=== PATIENT | male | born 1955 | race Caucasian/White ===

== ENCOUNTER 2020-07-31 16:52 | Emergency (ER) | payer MEDICARE ==
--- NOTE | 2020-07-31 16:55 | ERPHSYRPT ---
- History of Present Illness Time Seen by Provider: 07/31/20 16:55 Source: patient, family Exam Limitations: no limitations Physician History: Patient is a 65-year-old white male who has a history of hypertension and woke up today and was not feeling well. Patient was out in the heat today working hard in the yard and not drinking well. When he stood up he felt dizzy and fell. Prior to arrival, the patient felt dizzy and lightheaded and then fell injuring his face and head as well as his right hand. He had a syncopal episode. He denies chest pain he denies shortness of breath. He has no abdominal pain. He has never had anything like this before in the past. Timing/Duration: today Severity: moderate Associated Symptoms: syncope, No vomiting, No shortness of breath, No chest pain Allergies/Adverse Reactions: No Known Drug Allergies Allergy (Verified 07/31/20 17:15) Home Medications: lisinopriL [Lisinopril] 20 mg PO DAILY 07/31/20 [History] Hx Influenza Vaccination/Date Given: No Hx Pneumococcal Vaccination/Date Given: No Travel Risk - International Travel Have you traveled outside of the country in past 3 weeks: No - Coronavirus Screening Are you exhibiting any of the following symptoms?: No Close contact with a COVID-19 positive Pt in past 14-21 Days: No - Review of Systems Constitutional: Weakness Eyes: No Symptoms Ears, Nose, & Throat: No Symptoms Respiratory: No Symptoms Cardiac: No Symptoms, Syncope Abdominal/Gastrointestinal: No Symptoms Genitourinary Symptoms: No Symptoms Musculoskeletal: No Symptoms Skin: No Symptoms Neurological: Dizziness Psychological: No Symptoms Endocrine: No Symptoms Hematologic/Lymphatic: No Symptoms Immunological/Allergic: No Symptoms All Other Systems: Reviewed and Negative - Past Medical History Pertinent Past Medical History: Yes Neurological History: No Pertinent History ENT History: No Pertinent History Cardiac History: Hypertension Respiratory History: No Pertinent History Endocrine Medical History: No Pertinent History Musculoskeletal History: Osteoarthritis GI Medical History: No Pertinent History History: No Pertinent History Psycho-Social History: No Pertinent History Male Reproductive Disorders: No Pertinent History Other Medical History: HX SHOULDER PN D/T OA; KNEE OA - Past Surgical History Past Surgical History: Yes Neuro Surgical History: No Pertinent History Cardiac: No Pertinent History Respiratory: No Pertinent History Gastrointestinal: No Pertinent History Genitourinary: No Pertinent History Musculoskeletal: No Pertinent History Male Surgical History: No Pertinent History Other Surgical History: SKIN GRAFT IN 1992/[facility]. - Social History Smoking Status: Never smoker Exposure to second hand smoke: No Drug Use: none - Nursing Vital Signs Nursing Vital Signs: Initial Vital Signs Pulse Rate 88 07/31/20 17:04 Respiratory Rate 18 07/31/20 17:04 Blood Pressure 104/62 07/31/20 17:04 O2 Sat by Pulse Oximetry 94 L 07/31/20 17:04 Pain Scale Pain Intensity 0 - Physical Exam General Appearance: no apparent distress, alert, anxiety Eye Exam: PERRL/EOMI, other Ears, Nose, Throat Exam: normal ENT inspection (Laceration left lateral eyebrow), moist mucous membranes Neck Exam: normal inspection, non-tender, supple, full range of motion Respiratory Exam: normal breath sounds, lungs clear, airway intact, No chest tenderness, No respiratory distress Cardiovascular Exam: regular rate/rhythm, normal heart sounds, normal peripheral pulses Gastrointestinal/Abdomen Exam: soft, normal bowel sounds, No tenderness Rectal Exam: not done Back Exam: normal inspection, normal range of motion, No CVA tenderness, No vertebral tenderness Extremity Exam: normal inspection, normal range of motion, pelvis stable Neurologic Exam: alert, oriented x 3, cooperative, registration clerk II-XII nml as tested, normal mood/affect, nml cerebellar function, nml station & gait, sensation nml Skin Exam: laceration (Approximately 2 cm laceration lateral aspect of left eyebrow) Lymphatic Exam: No adenopathy SpO2 Interpretation: normal O2 Delivery: Room Air Procedures - Laceration/Wound Repair Left Lateral Eye Time of Procedure: 20:00 Wound Location: Left, face (I) Wound Length (cm): 4 Wound's Depth, Shape: superficial Wound Explored: clean (No foreign body in bloodless field to base) Hibiclens Prep: No Anesthesia: 1% Lidocaine Volume Anesthetic (ccs): 3 Wound Repaired With: sutures Suture Size/Type: 4-0, prolene Number of Sutures: 5 - Course Nursing assessment & vital signs reviewed: Yes EKG Interpreted by Me: RATE ([id number]), Sinus Rhythm, NORMAL AXIS, NORMAL INTERVALS, NORMAL QRS, NORMAL ST-T, Other (No acute ischemic changes on today's EKG. Comparison EKG was performed on 03/02/2013. No changes from then.) Ordered Tests: Active Orders 24 hr Category Date Time Status Precision Mechanical Instrument Maker STAT Care 07/31/20 17:30 Active EKG-ER Only STAT Care 07/31/20 17:29 Active IV Insertion STAT Care 07/31/20 17:29 Active HAND (MINIMUM 3 VIEWS) Stat Exams 07/31/20 17:31 Taken HEAD WITHOUT CONTRAST [CT] Stat Exams 07/31/20 17:30 Taken CBC W DIFF Stat Lab 07/31/20 17:10 Completed CMP Stat Lab 07/31/20 17:10 Completed Lactic Acid Stat Lab 07/31/20 17:29 Completed MAGNESIUM Stat Lab 07/31/20 17:10 Completed NT PRO BNP Stat Lab 07/31/20 17:10 Completed TROPONIN Q3H Lab 07/31/20 17:10 Completed TROPONIN Q3H Lab 07/31/20 20:30 Ordered TROPONIN Q3H Lab 07/31/20 23:30 Ordered TROPONIN Q3H Lab 08/01/20 02:30 Ordered TROPONIN Q3H Lab 08/01/20 05:30 Ordered UA W/RFX UR CULTURE Stat Lab 07/31/20 17:30 Ordered Urine Triage Profile Stat Lab 07/31/20 17:30 Ordered Medication Summary Discontinued Medications Generic Name Dose Route Start Last Admin Trade Name Freq PRN Reason Stop Dose Admin Bacitracin Zinc Confirm 07/31/20 20:22 Baciguent Packet Administered 07/31/20 20:23 Dose 1 gm .ROUTE .STK-MED ONE Sodium Chloride 1,000 mls @ 999 mls/hr 07/31/20 17:29 07/31/20 17:59 Sodium Chloride 0.9% 1000 Ml IV 07/31/20 18:29 999 mls/hr .Q1H1M STA Administration Sodium Chloride Confirm 07/31/20 17:57 Sodium Chloride 0.9% 1000 Ml Administered 07/31/20 17:58 Dose 1,000 mls @ ud .ROUTE .STK-MED ONE Lab/Rad Data: Laboratory Result Diagrams 07/31/20 17:10 07/31/20 17:10 Laboratory Results 07/31/20 07/31/20 07/31/20 Range/Units 17:29 17:10 17:10 WBC (4.0-10.5) K/mm3 RBC (4.1-5.6) M/mm3 Hgb (12.5-18.0) gm/dl Hct (42-50) % MCV (78-100) fl MCH (26-32) pg MCHC (32-36) g/dl RDW (11.5-14.0) % Plt Count (150-450) K/mm3 MPV (7.5-11.0) fl Gran % (36.0-66.0) % Eos # (Auto) (0-0.5) Absolute Lymphs (auto) (1.0-4.6) Absolute Monos (auto) (0.0-1.3) Lymphocytes % (24.0-44.0) % Monocytes % (0.0-12.0) % Eosinophils % (0.00-5.0) % Basophils % (0.0-0.4) % Absolute Granulocytes (1.4-6.9) Basophils # (0-0.4) Sodium 138 (137-145) mmol/L Potassium 4.3 (3.5-5.1) mmol/L Chloride 104 (98-107) mmol/L Carbon Dioxide 23 (22-30) mmol/L Anion Gap 16.2 H (5-15) MEQ/L BUN 18 (9-20) mg/dL Creatinine 1.53 H (0.66-1.25) mg/dL Estimated GFR 48.6 ML/MIN Glucose 137 H (74-106) mg/dL Lactic Acid 2.6 H (0.4-2.0) Calcium 9.8 (8.4-10.2) mg/dL Magnesium 2.1 (1.6-2.3) mg/dL Total Bilirubin 1.00 (0.2-1.3) mg/dL AST 35 (17-59) U/L ALT 19 (0-50) U/L Alkaline Phosphatase 88 (38-126) U/L Troponin I < 0.012 (0.000-0.034) ng/mL NT-Pro-B Natriuret Pep 66.4 (0-900) pg/mL Serum Total Protein 7.7 (6.3-8.2) g/dL Albumin 4.9 (3.5-5.0) g/dL 07/31/20 Range/Units 17:10 WBC 8.2 (4.0-10.5) K/mm3 RBC 4.97 (4.1-5.6) M/mm3 Hgb 15.9 (12.5-18.0) gm/dl Hct 48.8 (42-50) % MCV 98.2 (78-100) fl MCH 32.0 (26-32) pg MCHC 32.6 (32-36) g/dl RDW 13.9 (11.5-14.0) % Plt Count 230 (150-450) K/mm3 MPV 11.0 (7.5-11.0) fl Gran % 78.4 H (36.0-66.0) % Eos # (Auto) 0.03 (0-0.5) Absolute Lymphs (auto) 1.21 (1.0-4.6) Absolute Monos (auto) 0.52 (0.0-1.3) Lymphocytes % 14.7 L (24.0-44.0) % Monocytes % 6.3 (0.0-12.0) % Eosinophils % 0.4 (0.00-5.0) % Basophils % 0.2 (0.0-0.4) % Absolute Granulocytes 6.44 (1.4-6.9) Basophils # 0.02 (0-0.4) Sodium (137-145) mmol/L Potassium (3.5-5.1) mmol/L Chloride (98-107) mmol/L Carbon Dioxide (22-30) mmol/L Anion Gap (5-15) MEQ/L BUN (9-20) mg/dL Creatinine (0.66-1.25) mg/dL Estimated GFR ML/MIN Glucose (74-106) mg/dL Lactic Acid (0.4-2.0) Calcium (8.4-10.2) mg/dL Magnesium (1.6-2.3) mg/dL Total Bilirubin (0.2-1.3) mg/dL AST (17-59) U/L ALT (0-50) U/L Alkaline Phosphatase (38-126) U/L Troponin I (0.000-0.034) ng/mL NT-Pro-B Natriuret Pep (0-900) pg/mL Serum Total Protein (6.3-8.2) g/dL Albumin (3.5-5.0) g/dL - Progress Progress: improved, re-examined Progress Note: 07/31/20 18:53 CAT scan of the head without contrast shows a tiny, minimally depressed fracture lateral wall of the left orbit. Remaining CT of the head negative. Counseled pt/family regarding: lab results, diagnosis, need for follow-up, rad results - Departure Departure Disposition: Home Clinical Impression: Syncope, Orbital fracture, Facial laceration Condition: Stable Critical Care Time: No Referrals: DOCTOR,NO FAMILY [Primary Care Provider] - Additional Instructions: Drink plenty of fluids. Take your medication as prescribed. Suture removal in 5 to 7 days. Keep your laceration repair site dry for 24 hours. After 24 hours may wash the area well with soap and water. Blot dry or use a hairdryer to dry the site. Apply antibiotic ointment to the site and cover with bandage. Follow-up with your primary care physician for further management. Prescriptions: Cephalexin Mh 500 mg [Keflex 500 mg] 500 mg PO TID #21 capsule
[2020-07-31] MEDS ORDERED: Sodium Chloride 0.9% 1000 ML 1,000 ML IV STA (17:29)
[2020-07-31] MEDS ORDERED: Sodium Chloride 0.9% 1000 ML 1,000 ML ONE (17:57)
[2020-07-31 18:01] LABS: Absolute Neutrophil Ct (ANC) 6.44 (1.4-6.9); BASOPHIL % 0.2 % (0.0-0.4); Basophil (Absolute #) 0.02 (0-0.4); Eosinophil % 0.4 % (0.00-5.0); Eosinophil (Absolute #) 0.03 (0-0.5); Hematocrit 48.8 % (42-50); Hemoglobin 15.9 gm/dl (12.5-18.0); Lymphocyte (Absolute #) 1.21 (1.0-4.6); Lymphocytes % 14.7 % (24.0-44.0); Mean Cell Volume 98.2 fl (78-100); Mean Corpuscular Hgb Concent. 32.6 g/dl (32-36); Monocyte (Absolute #) 0.52 (0.0-1.3); Monocytes % 6.3 % (0.0-12.0); Neutrophil % 78.4 % (36.0-66.0); Platelet Count 230 K/mm3 (150-450); Red Blood Count 4.97 M/mm3 (4.1-5.6); Red Cell Distribution Width 13.9 % (11.5-14.0); White Blood Count 8.2 K/mm3 (4.0-10.5)
[2020-07-31 18:22] LABS: ALBUMIN 4.9 g/dL (3.5-5.0); ANION GAP 16.2 MEQ/L (5-15); Calcium 9.8 mg/dL (8.4-10.2); Creatinine 1 1.53 mg/dL (0.66-1.25); EST GLOMERULAR FILTRATION RATE 48.6 ML/MIN; MAGNESIUM 2.1 mg/dL (1.6-2.3); NT PRO BNP 66.4 pg/mL (0-900); Potassium 4.3 mmol/L (3.5-5.1); Total Protein 7.7 g/dL (6.3-8.2)
[2020-07-31] MEDS ORDERED: BACIGUENT PACKET ONE (20:22)
[2020-07-31] MEDS ORDERED: KEFLEX 500 MG PO ONE (20:40)
[2020-07-31] MEDS ORDERED: KEFLEX 500 MG ONE (21:01)
[2020-07-31 21:45] VITALS: BP 120/73; PULSE 103; O2SAT 94
--- NOTE | 2020-08-01 08:43 | XRAY ---
Indication: Left orbital laceration following head injury. Syncopy. Multiple contiguous axial images obtained through the head without contrast. Comparison: None Age-appropriate global atrophy. No acute intracranial hemorrhage, abnormal extra-axial fluid collection, or mass effect. Fourth ventricle is midline without hydrocephalus. Tiny minimally depressed fracture involving the inferior lateral wall of the left orbit without entrapment. Remaining bony calvarium intact. Paranasal sinuses and mastoid air cells are clear. Impression: 1. Minimally depressed fracture left orbit. 2. Remaining CT head without contrast exam is negative.
--- NOTE | 2020-08-01 08:45 | XRAY ---
Indication: Pain following fall. Comparison: None 3 the right hand demonstrates osteopenia, mild/moderate degenerative changes all IP/MCP joints, mild degenerative changes base 1st metacarpal, and radial styloid well-circumscribed ossification either developmental versus old injury. No other bony, articular, or soft tissue abnormalities.
== END 2020-07-31 21:10 | disposition home or self-care (01) ==
LOC: ED 16:52
DX: R55 Syncope and collapse (principal); S01.112A Laceration without foreign body of left eyelid and periocular area, initial encounter; S02.842A Fracture of lateral orbital wall, left side, initial encounter for closed fracture; W18.30XA Fall on same level, unspecified, initial encounter; Y93.01 Activity, walking, marching and hiking; Y92.096 Garden or yard of other non-institutional residence as the place of occurrence of the external cause; I10 Essential (primary) hypertension
CPT/HCPCS: 12013; 36000; 36415; 70450; 73130; 80053; 83605; 83735; 83880; 84484; 85025; 93005; 93041; 99284; A9270-GY